=== PATIENT | female | born 1960 | race Caucasian/White ===

== ENCOUNTER 2017-08-16 08:07 | Emergency (ER) | payer OTHER ==
[~2017-08-16] VITALS: Ht 167.6 cm; Wt 108.0 kg
[2017-08-16 08:09] VITALS: BP 176/91; PULSE 81; RESP 20; TEMP 97.3; O2SAT 98
[2017-08-16] MEDS ORDERED: MEDR4PAK PO (08:22)
[2017-08-16] MEDS ORDERED: ASPI1TAB57 PO (08:22)
[2017-08-16] MEDS ORDERED: AUGM875T3 PO (08:22)
[2017-08-16] MEDS ORDERED: MORP1TAB24 PO (08:22)
[2017-08-16] MEDS ORDERED: CITA10TA4 PO (08:22)
[2017-08-16] MEDS ORDERED: ATOR20TA15 PO (08:22)
[2017-08-16 08:29] VITALS: BP 168/98; PULSE 73; RESP 19; TEMP 97.9; O2SAT 98
--- NOTE | 2017-08-16 08:33 | PD ---
HPI Chief Complaint: Respiratory Symptoms Time Seen by Provider: 08:15 Travel History International Travel<30 days: No Contact w/Intl Traveler<30days: No Traveled to known affect area: No History of Present Illness HPI This 57-year-old female is complaining of cough and congestion. Been sick since last Wednesday. She went to [facility] on Wednesday and was started on amoxicillin and prednisone. She has been taking the medication. She is continuing to cough. She is bringing up a lot of phlegm. She says it seems like a lot of the congestion is in her head. She does not have a history of asthma though she has nebulizer to her house. She woke up at 230 this morning with a bad coughing spell. She had fever when she went to [facility] but does not know how it is been since. PFSH Past Medical History High Cholesterol: Yes Fibromyalgia: Yes Influenza Vaccination: No ?: Not Past Surgical History Hysterectomy: Yes Social History Alcohol Use: No Tobacco Use: No Substance Use: No Allergies-Medications (Allergen,Severity, Reaction): Coded Allergies: No Known Allergies (Unverified , 08/16/17) Reported Meds & Prescriptions Reported Meds & Active Scripts Active Reported Medrol Dosepak (Methylprednisolone) 4 Mg Dspk 4 Mg PO DIRECTED Per Pharmacist direction Augmentin (Amoxicillin-Clavulanate) 875-125 Mg Tab 1 Tab PO BID Citalopram (Citalopram Hydrobromide) 10 Mg Tab 10 Mg PO DAILY Atorvastatin (Atorvastatin Calcium) 20 Mg Tab 20 Mg PO HS Aspirin 81 (Aspirin) 81 Mg Tabdr 81 Mg PO DAILY Morphine ER (Morphine Sulfate) 15 Mg Tab 15 Mg PO Q8H Review of Systems General / Constitutional: Positive: Fever, Chills Eyes: No: Diploplia, Blurred Vision HENT: Positive: Sore Throat, Rhinitis, No: Headaches Cardiovascular: No: Chest Pain or Discomfort, Palpitations Respiratory: Positive: Cough, Shortness of Breath Gastrointestinal: No: Vomiting, Diarrhea Musculoskeletal: No: Myalgias, Arthralgias Skin: No Rash, No Itching Neurologic: No: Weakness Hematologic/Lymphatic: No: Easy Bruising Physical Exam Narrative GENERAL: Well-developed female SKIN: Focused skin assessment warm/dry. There is some facial flushing HEAD: Atraumatic. Normocephalic. EYES: Pupils equal and round. No scleral icterus. No injection or drainage. ENT: No nasal bleeding or discharge. Mucous membranes pink and moist. Nasal turbinates are swollen NECK: Trachea midline. No JVD. CARDIOVASCULAR: Regular rate and rhythm. No murmur appreciated. RESPIRATORY: No accessory muscle use. Clear to auscultation. Breath sounds equal bilaterally. GASTROINTESTINAL: Abdomen soft, non-tender, nondistended. Hepatic and splenic margins not palpable. MUSCULOSKELETAL: No obvious deformities. No clubbing. No cyanosis. No edema. NEUROLOGICAL: Awake and alert. No obvious cranial nerve deficits. Motor grossly within normal limits. Normal speech. PSYCHIATRIC: Appropriate mood and affect; insight and judgment normal. Data Data Last Documented VS Vital Signs Date Time Temp Pulse Resp B/P (MAP) Pulse Ox O2 Delivery O2 Flow Rate FiO2 08/16/17 08:29 97.9 73 19 168/98 (121) 98 Room Air Orders Orders Complete Blood Count With Diff (08/16/17 08:31) Basic Metabolic Panel (Bmp) (08/16/17 08:31) Chest, Single Ap (08/16/17 08:31) Labs Laboratory Tests Test 08/16/17 08:41 White Blood Count 12.0 TH/MM3 Red Blood Count 4.75 MIL/MM3 Hemoglobin 13.0 GM/DL Hematocrit 39.5 % Mean Corpuscular Volume 83.2 FL Mean Corpuscular Hemoglobin 27.4 PG Mean Corpuscular Hemoglobin Concent 33.0 % Red Cell Distribution Width 12.8 % Platelet Count 296 TH/MM3 Mean Platelet Volume 8.4 FL Neutrophils (%) (Auto) 59.4 % Lymphocytes (%) (Auto) 34.8 % Monocytes (%) (Auto) 4.5 % Eosinophils (%) (Auto) 0.7 % Basophils (%) (Auto) 0.6 % Neutrophils # (Auto) 7.1 TH/MM3 Lymphocytes # (Auto) 4.2 TH/MM3 Monocytes # (Auto) 0.5 TH/MM3 Eosinophils # (Auto) 0.1 TH/MM3 Basophils # (Auto) 0.1 TH/MM3 CBC Comment DIFF FINAL Differential Comment Blood Urea Nitrogen 15 MG/DL Creatinine 0.84 MG/DL Random Glucose 124 MG/DL Calcium Level 9.2 MG/DL Sodium Level 137 MEQ/L Potassium Level 3.3 MEQ/L Chloride Level 101 MEQ/L Carbon Dioxide Level 27.2 MEQ/L Anion Gap 9 MEQ/L Estimat Glomerular Filtration Rate 69 ML/MIN MDM Medical Decision Making Medical Screen Exam Complete: Yes Emergency Medical Condition: Yes Medical Record Reviewed: Yes Differential Diagnosis Differential includes bronchitis, pneumonia, sinusitis, upper respiratory infection Narrative Course Ingestions appears to be primarily related to sinusitis. Chest x-ray is negative for pneumonia but does show a small nodule in the follow-up is recommended. White count was 12,000. Patient is stable for discharge. She is to continue her amoxicillin and prednisone and follow-up with your own medical doctor Diagnosis Primary Impression: Upper respiratory infection Additional Impression: Sinusitis Additional Instructions: Continue amoxicillin and prednisone, use nasal spray for congestion, follow-up with your own medical doctor regarding small nodule Disposition: 01 DISCHARGE HOME Condition: Stable Juanito Greenberg MD August 16, 2017 08:33
[2017-08-16 08:56] LABS: AUTOMATED NEUTROPHIL # 7.1 TH/MM3 (1.8-7.7); BASOPHIL # 0.1 TH/MM3 (0-0.2); BASOPHIL % 0.6 % (0.0-2.0); EOSINOPHIL # 0.1 TH/MM3 (0-0.4); EOSINOPHIL % 0.7 % (0.0-4.0); HEMATOCRIT 39.5 % (35.0-46.0); LYMPH % 34.8 % (9.0-44.0); LYMPHOCYTE # 4.2 TH/MM3 (1.0-4.8); MEAN CELL VOLUME 83.2 FL (80.0-100.0); MEAN CORPUSCULAR HEMOGLOBIN 27.4 PG (27.0-34.0); MEAN PLATELET VOLUME 8.4 FL (7.0-11.0); MONO % 4.5 % (0.0-8.0); MONOCYTE # 0.5 TH/MM3 (0-0.9); NEUT % 59.4 % (16.0-70.0); PLATELET COUNT 296 TH/MM3 (150-450); RED BLOOD COUNT 4.75 MIL/MM3 (4.00-5.30); RED CELL DISTRIBUTION WIDTH 12.8 % (11.6-17.2)
[2017-08-16 09:10] LABS: CALCIUM 9.2 MG/DL (8.5-10.1)
[2017-08-16 09:11] LABS: BICARBONATE 27.2 MEQ/L (21.0-32.0)
[2017-08-16 09:14] LABS: CREATININE 0.84 MG/DL (0.50-1.00)
--- NOTE | 2017-08-16 09:17 | RADRPT ---
EXAM DATE: 08/16/2017 8:51 AM EDT AGE/SEX: 57 years / Female INDICATIONS: Cough. CLINICAL DATA: This is the patient's initial encounter. Patient reports that signs and symptoms have been present for 1 week and indicates a pain score of 0/10. MEDICAL/SURGICAL HISTORY: None. None. COMPARISON: No prior [facility] exams available for comparison. FINDINGS: A single AP view of the chest demonstrates the lungs to be symmetrically aerated without evidence of mass, infiltrate or effusion. Small nodule right upper lobe. The cardiomediastinal contours are unrem arkable. Osseous structures are intact. CONCLUSION: 1. No acute cardiopulmonary disease. 2. Small nodule right upper lobe. Outpatient nonemergent CT chest recommended. Electronically signed by: Wilbur Ogden MD 08/16/2017 9:16 AM EDT
[2017-08-16] MEDS ORDERED: POTASSIUM CHLORIDE 20 MEQ CONTROLLED RELEASE TAB PO ONE (10:45)
[2017-08-16 10:51] VITALS: BP 130/81
== END 2017-08-16 10:52 | disposition home or self-care (01) ==
LOC: PHED 08:07
DX: J06.9 Acute upper respiratory infection, unspecified (principal); J32.9 Chronic sinusitis, unspecified; J45.909 Unspecified asthma, uncomplicated; E78.00 Pure hypercholesterolemia, unspecified; M79.7 Fibromyalgia
CPT/HCPCS: 71045; 80048; 85025; 99284